=== PATIENT | male | born 1995 | race Caucasian/White ===

== ENCOUNTER → 2024-03-11 13:23 | Outpatient (REF) | payer OTHER, SELFPAY | LOC: HWRAD 13:23 | PROVIDERS: ATTENDING PHYSICIAN Family Medicine | DX: N43.2 Other hydrocele (principal) | CPT/HCPCS: 76870; 93976 ==

== ENCOUNTER 2024-08-17 06:20 | Day surgery (SDC) | payer OTHER, SELFPAY ==
[2024-08-17] VITALS (8 sets, daily range): BP systolic 128–151; BP diastolic 69–81; BMI 25.4
--- NOTE | 2024-08-17 07:18 | HP.FOC2 ---
Focused History & Physical
Chief Complaint
HPI:
Chief Complaint: Right inguinal swelling
HPI / Indication for Planned Procedure: Patient is a 28-year-old male recently seen in outpatient surgical evaluation secondary to a 2-year history of right inguinal, scrotal/testicular swelling. Degree of swelling is variable but has slowly
increased overall with time. Reducible while lies down. Recent ultrasound imaging identifying fat-containing right inguinal hernia with small amount of fluid within the hernia sac. Presents today for scheduled operative correction.
Relevant Past Medical History: Negative and Other (Acne)
Relevant Social History: Negative
Relevant Family History: Negative
Relevant Past Surgical History: Positive for ([place] teeth)
Review of Systems
Review of Pertinent Systems: All Systems Negative
Medication
See Medication form for detailed medications: Yes
Medication List (including Herbals & OTC):
isotretinoin 40 mg capsule 40 mg PO BID 08/13/24
Medications Reviewed: Yes
Allergies and Reactions
Patient has Allergies: No
Noted Allergies and Reactions:
Allergy/AdvReac Type Severity Reaction Status Date / Time
No Known Allergies Allergy Unverified 08/13/24 16:04
Pertinent Physical Exam
All Other Systems: Negative
Head/Neck: Normal
Lungs: Normal
Heart: Normal
Abdomen: Other (Reducible right inguinal hernia. No detectable hydrocele. Left inguinal examination normal)
Extremities: Normal
Neurological: Normal
Diagnosis / Assessment
28-year-old male with symptomatic right inguinal hernia
Plan / Procedure
Robotic assisted laparoscopic repair right inguinal hernia with mesh
Anesthesia/Sedation to be done by Anesthesia Provider: Yes
--- NOTE | 2024-08-17 07:20 | W.SUR.PREOP ---
Pre-Operative Surgical Note
-
I have examined this patient prior to the performance of the scheduled procedure.
The patient's condition is unchanged from the time of the current History and
Physical and the patient is able to undergo the scheduled procedure.
[2024-08-17] MEDS: TYLENOL 1000 MG PO (08:46)
--- NOTE | 2024-08-17 11:47 | W.IMMPOSTOP ---
Addendum entered and electronically signed by Angelito Marino MD 08/17/24 14:27:
#[id number]
Original Note:
Surgical Immed Post Op Note
-
Primary Surgeon: Ned
Assisting Surgeon: Julee Gamez PA-c
Pre-op Diagnosis: Right inguinal hernia
Post-op Diagnosis: Right inguinal hernia, indirect
Procedure Performed: RAL T JOSE M repair of right inguinal hernia with mesh; 3D max large mid weight
Anesthesia Type: GETA +0.25% Marcaine
Specimen / Cultures: None
Estimated Blood Loss: 6 mL
Complications: None immediate
Operative Findings: Right indirect inguinal hernia with hernia sac extending all the way down to the right scrotal/testicular area. Sac completely reduced off of cord structures and attachments to testicle. Direct and femoral spaces normal. 3D
max large mid weight mesh repair.
The assistance of Julee Gamez PA-C was required due to the complexity of the procedure. During the procedure Julee Gamez PA-C assisted with port placement, robotic instrumentation and suture material exchanges, and closure of the surgical incision
sites. I was present for the entirety of the operative procedure.
== END 2024-08-17 13:54 | disposition home or self-care (01) ==
LOC: SDS 06:20
PROVIDERS: ATTENDING PHYSICIAN Surgery
DX: K40.90 Unilateral inguinal hernia, without obstruction or gangrene, not specified as recurrent (principal)
CPT/HCPCS: 49650; C1781